=== PATIENT | female | born 1960 | race Caucasian/White ===

== ENCOUNTER 2017-06-21 05:01 | Day surgery (SDC) | payer BC ==
[2017-06-15 14:52] VITALS: BMI 23.0
--- NOTE | 2017-06-15 15:18 | PAT Medication Instructions ---
Service Date Jun 15, 2017. Current Home Medication List Acetaminophen (Tylenol), 1,000 MG PO PRN Albuterol Hfa (Ventolin Hfa), 2-4 PUFFS INH Q6H Fluticasone Prop/Salmeterol (Advair Diskus 100/50 60 Dose), 1 PUFF INH BID Montelukast Sodium (Montelukast Sodium), 1 TAB PO HS Venlafaxine Hcl (Effexor Extended Rel), 150 MG PO QPM Venlafaxine Hcl (Effexor), 37.5 MG PO QPM Vitamin E (E-1000), 1,000 UNITS PO QPM [Hair Skin Nails], 1 TAB PO QPM [Vitamin B12], 1 TAB PO QPM Medication Instructions For Your Scheduled Surgery - Hold the following medications 2 weeks prior to surgery: Vitamin E (E-1000), 1,000 UNITS PO QPM - Take the following medications the morning of surgery with a sip of water: Fluticasone Prop/Salmeterol (Advair Diskus 100/50 60 Dose), 1 PUFF INH BID Acetaminophen (Tylenol), 1,000 MG PO PRN (if needed) Albuterol Hfa (Ventolin Hfa), 2-4 PUFFS INH Q6H (bring with you to hospital morning of surgery; use if needed) - Take the following medications as scheduled the night before surgery: [Hair Skin Nails], 1 TAB PO QPM [Vitamin B12], 1 TAB PO QPM Venlafaxine Hcl (Effexor Extended Rel), 150 MG PO QPM Venlafaxine Hcl (Effexor), 37.5 MG PO QPM Fluticasone Prop/Salmeterol (Advair Diskus 100/50 60 Dose), 1 PUFF INH BID Montelukast Sodium (Montelukast Sodium), 1 TAB PO HS Acetaminophen (Tylenol), 1,000 MG PO PRN (if needed) Albuterol Hfa (Ventolin Hfa), 2-4 PUFFS INH Q6H If you have any questions please call us at [phone] or [phone] or [phone]
--- NOTE | 2017-06-15 15:57 | DIAGNOSTIC IMAGING REPORT ---
CHEST 2 VIEWS ROUTINE HISTORY: 56 years-old Female preoperative exam. History of spinal stenosis. COMPARISON: None available. TECHNIQUE: Frontal and lateral views of the chest. FINDINGS: Cardiomediastinal and hilar silhouettes are within normal limits. There is no pneumothorax, pleural effusion, focal airspace consolidation or overt pulmonary edema. Moderate changes involving the bilateral AC joints. Upper abdominal structures are within normal limits. IMPRESSION: No acute cardiopulmonary process The above report was generated using voice recognition software. It may contain grammatical, syntax or spelling errors. Electronically signed by: Migel Leija M.D. 06/15/2017 3:56 PM Dictated Date/Time: 06/15/2017 3:55 PM
[2017-06-15 15:58] LABS: BASO % 0.6 %; BASO ABS # 0.06 K/uL (0-0.2); COMPLETE YES; EOS % 2.2 %; HEMATOCRIT 40.5 % (37-47); IG% 0.2 %; LYMPH % 27.3 %; LYMPH ABS # 2.62 K/uL (1.2-3.4); MEAN CORPUSCULAR HEMOGLOBIN 30.9 pg (25-34); MEAN CORPUSCULAR HGB CONC 34.3 g/dl (32-36); MONO % 8.5 %; NEUT % 61.2 %; PLATELET COUNT 277 K/uL (130-400); WHITE BLOOD COUNT 9.61 K/uL (4.8-10.8)
[2017-06-15 16:06] LABS: URINE APPEARANCE CLEAR (CLEAR); URINE BILIRUBIN NEG (NEG); URINE COLOR YELLOW; URINE EPITHELIAL CELL AUTO >30 /lpf (0-5); URINE NITRITE NEG (NEG); URINE PH 7.5 (4.5-7.5); URINE SPECIFIC GRAVITY 1.021 (1.000-1.030); UROBILINOGEN NEG (NEG); ZZUR CULT IF INDIC CLEAN CATCH YES
[2017-06-15 16:27] LABS: MANUAL MICROSCOPIC REQUIRED? NO; REVIEW REQ? NO
[2017-06-15 16:30] LABS: BUN/CREATININE RATIO 22.3 (10-20); CALCIUM 9.9 mg/dl (8.5-10.1); CREATININE 0.99 mg/dl (0.60-1.20); POTASSIUM 4.2 mmol/L (3.5-5.1)
[~2017-06-21] VITALS: Ht 170.2 cm; Wt 66.7 kg
[~2017-06-21 05:01] MED LIST: ACET-1256 PO; ADVIN10/60 INH; EFF/375 PO; HAIR SKIN NAILS PO; MONT1TAB5 PO; VENL150C56 PO; VITACAP38 PO; VITAMIN B12 PO; VNTHFA/IN INH
[2017-06-21] MEDS ORDERED: OXYC1TAB3 PO ×2 (05:42→08:30)
[2017-06-21 05:43] VITALS: BP 197/100; PULSE 63; TEMP 36.4; O2SAT 98; Ht 170.2 cm; Wt 66.7 kg
[2017-06-21] MEDS ORDERED: CEFAZOLIN 1000MG/55 ML D5W IV SCH (06:00)
[2017-06-21] MEDS ORDERED: LACTATED RINGER'S 1000ML 1,000 ML IV SCH (06:00)
[2017-06-21] MEDS ORDERED: LIDOCAINE HCL 2% 2 ML VIAL (20MG/ML) ONE (07:26)
[2017-06-21] MEDS ORDERED: PROPOFOL IV EMULSION 10 MG/ML 20 ML VIAL IV ONE (07:26)
[2017-06-21] MEDS ORDERED: ONDANSETRON INJ 2 MG/ML 2 ML VIAL ONE (07:26)
[2017-06-21] MEDS ORDERED: DEXAMETHASONE SOD INJ 4 MG/ML VIAL ONE ×2 (07:26→08:54)
[2017-06-21] MEDS ORDERED: SUCCINYLCHOLINE CHLORIDE 20 MG/ML 10 ML VIAL IV ONE (07:26)
[2017-06-21] MEDS ORDERED: ROCURONIUM BROMIDE 10 MG/ML 5 ML VIAL ONE (07:26)
[2017-06-21] MEDS ORDERED: NEOSTIGMINE METHYLSULFATE 1 MG/ML 10ML VIAL ONE (07:26)
[2017-06-21] MEDS ORDERED: EpHEDrine SULFATE INJ 50 MG/ML AMP ONE (07:26)
[2017-06-21] MEDS ORDERED: GLYCOPYRROLATE INJ 0.2 MG/ML VIAL ONE (07:26)
[2017-06-21] MEDS ORDERED: PHENYLEPHRINE HCL INJ 10 MG/ML VIAL ONE (07:26)
[2017-06-21] MEDS ORDERED: MIDAZOLAM HCL 1 MG/ML 2ML VIAL ONE (07:27)
[2017-06-21] MEDS ORDERED: FENTANYL CITRATE INJ 50 MCG/1 ML 2 ML VIAL ONE (07:27)
--- NOTE | 2017-06-21 07:29 | History & Physical Bridge Note ---
H&P Re-Evaluation Bridge Note: I have examined the patient, reviewed the History & Physical and in the interval since the performance of the History & Physical I have noted the following changes of clinical significance: No changes noted
--- NOTE | 2017-06-21 07:30 | History and Physical ---
History & Physical Date Jun 21, 2017. Chief Complaint Back and leg pain History of Present Illness The patient is a 56 year old female with complaints of Additional History Hepatic Disease: No Endocrine Disorder: No Kidney Disease: No Hypertension: No Heart Disease: No Bleeding Tendencies: No Infectious Diseases: No Allergies Coded Allergies: No Known Allergies (Unverified , 06/21/17) Home Medications Scheduled Acetaminophen (Tylenol), 1,000 MG PO PRN Albuterol Hfa (Ventolin Hfa), 2-4 PUFFS INH Q6H Fluticasone Prop/Salmeterol (Advair Diskus 100/50 60 Dose), 1 PUFF INH BID Montelukast Sodium (Montelukast Sodium), 1 TAB PO HS Venlafaxine Hcl (Effexor Extended Rel), 150 MG PO QPM Venlafaxine Hcl (Effexor), 37.5 MG PO QPM Vitamin E (E-1000), 1,000 UNITS PO QPM [Hair Skin Nails], 1 TAB PO QPM [Vitamin B12], 1 TAB PO QPM Scheduled PRN Oxycodone Ir (Roxicodone Ir), 1-2 TAB PO Q4H PRN for Severe Pain Physical Examination Skin: warm/dry, no rash Eyes: normal inspection, EOMI, sclerae normal ENT: normal ENT inspection, pharynx normal Head: normocephalic, atraumatic Neck: supple, no adenopathy, trachea midline Respiratory/Chest: lungs clear, normal breath sounds, no respiratory distress Cardiovascular: regular rate, rhythm, no edema, no murmur Abdomen / GI: normal bowel sounds, non tender Back: normal inspection Extremities: normal inspection, normal range of motion Neurologic/Psych: no motor/sensory deficits, alert, normal reflexes, oriented x 3 Diagnosis Herniated nucleus pulposus L5-S1 Plan of Treatment Lumbar laminotomy pressure discectomy L5-S1
[2017-06-21] MEDS ORDERED: BUPIVACAINE/EPINEPHRINE 0.5% MPF 1:200,000 10 ML VIAL ONE (07:42)
[2017-06-21] MEDS ORDERED: BACITRACIN 50000 UNIT VIAL ONE (07:42)
[2017-06-21] MEDS ORDERED: HYDROmorphone INJ 2 MG/ML SYR/VIAL ONE (07:59)
[2017-06-21] MEDS ORDERED: PROMETHAZINE HCL INJ 12.5 MG in SODIUM CHLORIDE 0.9% 50ML 50 ML IV PRN (08:00)
[2017-06-21] MEDS ORDERED: HYDROmorphone INJ 2 MG/ML SYR/VIAL IV PRN ×2 (08:00→08:45)
[2017-06-21] MEDS ORDERED: LABETALOL HCL IV 5 MG/ML 20ML IV PRN (08:00)
[2017-06-21] MEDS ORDERED: ATROPINE SULFATE 0.1 MG/ML 5ML SYR IV PRN (08:00)
[2017-06-21] MEDS ORDERED: ONDANSETRON INJ 2 MG/ML 2 ML VIAL IV PRN (08:00)
--- NOTE | 2017-06-21 08:31 | Discharge Instructions ---
Discharge Instructions Date of Service Jun 21, 2017. Admission Reason for Admission: Spinal Stenosis Discharge Discharge Diagnosis / Problem: lumbar herniated nucleus pulposus L5-S1 Discharge Goals Goal(s): Improve function Activity Recommendations Activity Limitations: per Instructions/Follow-up section . Instructions / Follow-Up Instructions / Follow-Up ACTIVITY RECOMMENDATIONS: SELF CARE INSTRUCTIONS AFTER A LAMINECTOMY 1. No prolonged sitting (less than 30 minutes for the first 3 weeks after surgery). 2. No bending, lifting more than 5 pounds, or twisting (roll like a log when turning in bed). 3. You may shower 3 days after surgery if no drainage from wound. Thoroughly dry wound. Do not soak in the tub. 4. Please walk as much as you can for exercise. Gradually increase the distance that you walk as your endurance increases. 5. You may drive in 7-10 days if you are comfortable and no longer requiring pain medications. SPECIAL CARE INSTRUCTIONS: VERY IMPORTANT TO READ AND REVIEW A. Your surgical incision has been closed with a cosmetic suture under the skin that will dissolve in about 6 weeks. In 14 days, you can use a pair of clean scissors and cut the suture that is left outside of the skin at the ends of your incision. B. Complications are uncommon, but please contact us if you have any signs or symptoms of: 1. wound infection (fever higher than 102.5 degrees F, redness, separation of wound, drainage, or increasing pain from the incision) 2. blood clots in legs (pain, swelling, redness and warmth in legs) 3. urinary tract infection (fever higher than 102.5 degrees, burning upon urination or increased frequency of urination) 4. nerve problems (inability to walk on your toes or heels, numbness, loss of bowel or bladder control) 5. any other symptoms that concern you. C. Please call the office at if you have any concerns or questions about your operation or recovery. MANAGING PAIN AFTER SPINAL SURGERY 1. Narcotic medication is intended for short-term use and will be provided for surgical pain. Surgical pain usually lasts for a period of 4-6 weeks. Narcotic medication includes Percocet, Vicodin, Darvocet, Tylenol #3 or Lortab. 2. Longer-term pain is more appropriately treated with non-narcotic medication such as Tylenol ES. 3. Muscle spasm is not appropriately treated with narcotics. Muscle relaxers such as Soma, Flexeril or Skelaxin can be used along with Tylenol ES. 4. Remember that we all live with some "aches and pains". This is not unusual or uncommon after an injury or as we get older. 5. We will provide appropriate medication within the normal guidelines of their prescribed use. We will also be very cautious and aware of potential abuse and extended duration of patients' medication needs. 6. Please allow 2-3 days to process refills. Prescriptions will not be mailed but must be picked up at the office. FOLLOW UP VISIT: Keep your scheduled follow-up appointment. Any questions, please call the office at . Current Hospital Diet Patient's current hospital diet: Discharge Diet Recommended Diet: Regular Diet Procedures Procedures Performed: Laminotomy pressure discectomy L5-S1 Pending Studies Studies pending at discharge: no Medical Emergencies . Who to Call and When: Medical Emergencies: If at any time you feel your situation is an emergency, please call 911 immediately. . Non-Emergent Contact Non-Emergency issues call your: Primary Care Provider . "Provider Documentation" section prepared by Javon Mcdermott. . VTE Core Measure Inpt VTE Proph given/why not?: Annie Oh, SCD's
--- NOTE | 2017-06-21 08:38 | [facility] Operative Report ---
Operative Report Operative Date Jun 21, 2017. Pre-Operative Diagnosis Herniated nucleus pulposus L5-S1 Post-Operative Diagnosis Herniated nucleus pulposus L5-S1 Procedure(s) Performed Lumbar laminotomy L5-S1 on the right with partial discectomy of herniated free fragment. Surgeon Dr. Mcdermott Hammer Operator Surgeon(s) Nallely Carrington PA-C Findings Acute herniated nucleus pulposus L5-S1 Specimens none per surgeon Description of Procedure Patient was met with preoperatively case discussed all questions were addressed. That point patient was taken back to the operative suite after undergoing intubation was placed in a prone position on the Anshul table on top of the Nikolas frame. All bony promises well-padded eyes inspected to ensure no external pressure. Lumbar spines and prepped and draped in sterile fashion. With the assistance of fluoroscopy we identified the 51 disc space. The small midline incision was created. Sharp dissection with the assistance of Bovie cautery performed onto an exposing the interlaminar space at L5-S1 the right. We verified our position with fluoroscopy. Several chiropractors placed. Small laminotomy was created including removal of the lateral aspect of the ligamentum flavum and medial facet. We exposed a severely compressed traversing S1 nerve root. Was able to mobilize this medially and expose several large fragments of loose disc material. This was removed in its entirety. The area was explored several times ensure all loose fragments were addressed. Incision was in copious irrigated and closed with 1 Vicryl in the fascia 2-0 Vicryl subcutaneous tediously 4-0 Monocryl final skin closure. Sterile dressing sterile dressing placed. Patient awakened and taken to PACU in stable condition. Please note Nallely Rodriguez present throughout the entire procedure involved in patient positioning complex portions of the procedure and final skin closure. I attest to the content of the Intraoperative Record and any orders documented therein. Any exceptions are noted below.
--- NOTE | 2017-06-21 08:40 | DIAGNOSTIC IMAGING REPORT ---
SPINE ONE VIEW, ANY LEVEL HISTORY: Laminectomy. FLUOROSCOPY TIME: 10 seconds. FINDINGS: Intraoperative fluoroscopy was provided for the lumbar spine. 1 fluoroscopic spot images were obtained. IMPRESSION: Fluoroscopy provided for a L5-S1 laminectomy. The above report was generated using voice recognition software. It may contain grammatical, syntax or spelling errors. Electronically signed by: Vaibhav Denny M.D. 06/21/2017 8:39 AM Dictated Date/Time: 06/21/2017 8:39 AM
[2017-06-21] MEDS ORDERED: ACETAMINOPHEN 325 MG TAB PO PRN (08:45)
[2017-06-21] MEDS ORDERED: HYDROmorphone INJ 1 MG/ML SYR IV PRN (08:45)
[2017-06-21] MEDS ORDERED: KETOROLAC TROMETHAMINE 30 MG/ML VIAL IV. PRN (08:45)
[2017-06-21] MEDS ORDERED: OXYCODONE HCL IR 5 MG TAB (IMMEDIATE RELEASE) PO PRN (08:45)
[2017-06-21] MEDS ORDERED: ALBUTEROL HFA INHALER 8.5 GM INH ONE (08:54)
--- NOTE | 2017-06-21 09:33 | Anesthesiology Progress Note ---
Anesthesia Post Op Note Date & Time Jun 21, 2017 at 09:33 Vital Signs Pain Intensity: 3 Vital Signs Past 12 Hours Date Time Temp Pulse Resp B/P (MAP) Pulse Ox O2 Delivery O2 Flow Rate FiO2 06/21/17 09:28 36.4 52 16 135/79 93 Room Air 06/21/17 09:26 36.4 135/79 06/21/17 09:23 55 16 93 06/21/17 09:23 56 14 06/21/17 09:21 135/92 06/21/17 09:18 84 14 90 06/21/17 09:18 83 14 06/21/17 09:16 145/71 06/21/17 09:13 51 20 93 06/21/17 09:13 51 20 06/21/17 09:11 129/76 06/21/17 09:08 83 15 100 06/21/17 09:08 82 15 06/21/17 09:07 55 15 100 06/21/17 09:07 55 15 06/21/17 09:06 133/69 06/21/17 09:02 59 20 98 06/21/17 09:02 59 20 06/21/17 09:01 129/74 06/21/17 08:57 77 17 06/21/17 08:57 74 17 100 06/21/17 08:56 54 19 152/65 99 06/21/17 08:56 56 19 06/21/17 08:51 86 19 136/76 99 06/21/17 08:51 82 19 06/21/17 08:47 162/89 06/21/17 08:46 96 06/21/17 08:46 36.2 67 17 162/89 100 Mask 10 06/21/17 08:46 96 100 06/21/17 05:43 36.4 63 18 197/100 (132) 98 Room Air Notes Mental Status: alert / awake / arousable, participated in evaluation Pt Amnestic to Procedure: Yes Nausea / Vomiting: adequately controlled Pain: adequately controlled Airway Patency, RR, SpO2: stable & adequate BP & HR: stable & adequate Hydration State: stable & adequate Anesthetic Complications: no major complications apparent
[2017-06-21 09:40] VITALS: BP 128/66; PULSE 57; TEMP 36.3; O2SAT 93
[2017-06-21 10:10] VITALS: BP 123/74; PULSE 56; O2SAT 93
[2017-06-21 10:40] VITALS: BP 116/64; PULSE 55; TEMP 36.4; O2SAT 94
== END 2017-06-21 11:05 | disposition home or self-care (01) ==
LOC: C.ACU 05:01
PROVIDERS: ATTEND Orthopaedic Surgery Orthopaedic Surgery of the Spine
DX: M51.26 Other intervertebral disc displacement, lumbar region (principal)